=== PATIENT | male | born 2000 | race Caucasian/White ===

== ENCOUNTER 2022-02-01 09:42 | Emergency (ER) | payer SELFPAY ==
[2022-02-01 09:45] VITALS: BP 154/101; PULSE 97; RESP 24; TEMP 37.3; O2SAT 97; BMI 28.7
--- NOTE | 2022-02-01 09:45 | PC.NURSE ---
brancher via ipad provided to patient for triage
--- NOTE | 2022-02-01 09:48 | [facility].EDGENADL ---
ED Disposition Clinical Impression: Shakiness, Dizziness Heat exhaustion Qualifiers: Encounter type: initial encounter Qualified Code(s): T67.5XXA - Heat exhaustion, unspecified, initial encounter Disposition: Home, Self-Care Condition on Discharge: Good Instructions: DI for Heat Exhaustion and Heat Stroke, DI for Dizziness-Nonvertigo Additional Instructions: Off work today, rest and drink plenty of fluids. Stay out of the heat today. Antivert as needed for dizziness. You will need to follow-up with a primary care provider for your blood pressure, elevated liver enzymes, and current symptoms. Call a primary care provider to make an appointment. You are being provided with a list of physicians available for follow-up of your condition. Please call a physician on this list to arrange a follow-up appointment as soon as possible. Additional instructions regarding BLOOD PRESSURE: One or more of your blood pressure readings elevated today. Please contact your primary care physician for further evaluation or treatment of your blood pressure. Prescriptions: Meclizine HCl [Antivert 25mg tablet] 25 mg PO TIDP PRN #15 tab PRN Reason: Vertigo Transmission Status: Pending to [facility] Referrals: Provider,Referral, [Primary Care Provider] - - Critical Care Critical Care Time: No Attestation: On , the high probability of a clinically significant, sudden or life threatening deterioration of the following system(s) required my full and direct attention, intervention and personal management. The time I documented below is in addition to time spent performing reported procedures but includes the following listed in this critical care notation. Medical Decision Making - Misael Inquiry Pt receiving controlled substance: No Vital Signs: 02/01/22 09:45 02/01/22 09:59 Temperature 99.2 F Temperature Source Oral Pulse Rate 97 H Pulse Rate [Left Radial] 97 H Respiratory Rate 24 22 Blood Pressure 157/88 H Blood Pressure [Right Arm] 154/101 H Blood Pressure Mean [Right Arm] 118 02 Sat by Pulse Oximetry 97 100 Oxygen Delivery Method Room Air Room Air - Lab Data Lab Results 02/01/22 10:01: WBC 8.8, RBC 5.26, Hgb 16.5, Hct 49.7, MCV 94.4 H, MCH 31.4 H, MCHC 33.3, RDW 13.6, Plt Count 224, MPV 9.2, Neut % (Auto) 71.4, Lymph % (Auto) 14.8, [place] % (Auto) 6.9, Eos % (Auto) 4.8, Baso % (Auto) 2.1 H, Neut # (Auto) 6.3, Lymph # (Auto) 1.3, [place] # (Auto) 0.6, Eos # (Auto) 0.4, Baso # (Auto) 0.2 02/01/22 10:01: Sodium 140, Potassium 3.7, Chloride 105, Carbon Dioxide 27, Anion Gap 11.7, BUN 9, Creatinine 0.60 L, Estimated Creat Clear 250, Estimated GFR 170, Est GFR ( Amer) 206, Glucose 119 H, Calcium 9.2, Total Bilirubin < 0.1 L, AST 114 H, ALT 283 H, Alkaline Phosphatase 99, Total Protein 7.3, Albumin 4.6, Globulin 2.7, Albumin/Globulin Ratio 1.7 02/01/22 10:01: Urine Color Yellow, Urine Appearance Clear, Urine pH 6.5, Ur Specific Vivian <= 1.005, Urine Protein Negative, Urine Glucose (UA) Negative, Urine Ketones Negative, Urine Blood Negative, Urine Nitrate Negative, Urine Bilirubin Negative, Urine Urobilinogen 0.2, Ur Leukocyte Esterase Negative, Urine RBC Occasional, Urine WBC Occasional, Ur Squamous Epith Cells Occasional, Urine Bacteria Trace 02/01/22 10:01: SARS-CoV-2 (PCR) Not detected, Influenza A Untype (PCR) Not detected, Influenza Type B (PCR) Not detected 02/01/22 10:01: Urine Opiates Screen Negative, Urine Methadone Screen Negative, Ur Barbituates Screen Negative, Ur Phencyclidine Scrn Negative, Ur Amphetamines Screen Negative, U Benzodiazepines Scrn Negative, Urine Cocaine Screen Negative, U Marijuana (THC) Screen Negative 02/01/22 10:01: Plasma/Serum Alcohol 17 H 02/01/22 10:01: Total Creatine Kinase 179 H, CK-MB (CK-2) 1.5, CK-MB (CK-2) Rel Index 0.8, Troponin I < 0.01 02/01/22 10:01: Lipase 92 Result diagrams: 02/01/22 10:01 02/01/22 10:01 - Radiology Data #1 Image(s): Chest Image Re
--- NOTE | 2022-02-01 09:49 | PC.NURSE ---
YVES HOWARD at
--- NOTE | 2022-02-01 09:55 | XR_ITS ---
FINAL REPORT CLINICAL HISTORY: shakiness, hurts all over FINDINGS: TWO-VIEW CHEST The heart size is normal. The mediastinum is normal. The lungs are underinflated with scarring in the right mid lung. There is no pneumothorax. IMPRESSION: No acute cardiopulmonary process. Reviewed, Interpreted and Dictated by Jose Francisco Rosas MD Transcribed by Chika Coelho Authenticated and [facility]
--- NOTE | 2022-02-01 09:55 | ECG_ITS ---
APPROVED REPORT Exam: Resting ECG HR:98 bpm ECG Measurements Heart Rate 98 AXES WA 129 P 55 QRSd 116 QRS 24 QT 327 T 25 QTc 383 Conclusion SINUS RHYTHM POSSIBLE LATERAL MYOCARDIAL INFARCTION , OF INDETERMINATE AGE [30 ms Q WAVE IN I/aVL/V5/V6] ABNORMAL ECG UNCONFIRMED REPORT Electronically signed by : Andre Ray MD 02/01/2022 17:57:21
--- NOTE | 2022-02-01 09:58 | PC.NURSE ---
YVES HOWARD at BS with ipad for field checker. GABY Cosby at BS assisting with ipad
[2022-02-01 09:59] VITALS: BP 157/88; PULSE 97; RESP 22; O2SAT 100
--- NOTE | 2022-02-01 10:08 | PC.NURSE ---
diversional therapist used for MD to assess pt
--- NOTE | 2022-02-01 10:09 | PC.NURSE ---
pt being transported to radiology via wheelchair with general manager road production via ipad for assistance
--- NOTE | 2022-02-01 10:11 | PC.NURSE ---
pt back from radiology. pt ambulating to the restroom to provide urine sample
--- NOTE | 2022-02-01 10:12 | PC.NURSE ---
Pt using restroom at this time; no complications
--- NOTE | 2022-02-01 10:15 | PC.NURSE ---
pt back to ED room 7 from restroom via . Alea RN at to collect labs and covid swab
[2022-02-01 10:21] VITALS: BP 157/88; PULSE 92; O2SAT 99
[2022-02-01 10:24] LABS: Coronavirus 19, PCR Not Detected (NotDetected); Influenza A, PCR Not Detected (NotDetected); Influenza B, PCR Not Detected (NotDetected); Microscopic, Urine URINE MICROSCOPIC (MICROSCOPIC)
[2022-02-01 10:27] LABS: Appearance,Urine CLEAR (Clear); Bilirubin,Urine Negative (Negative); Blood, Urine Negative (Negative); Color,Urine YELLOW (Yellow); Glucose,Urine (UA) Negative (Negative); Ketones,Urine Negative (Negative); Leukocyte Esterase,Urine Negative (Negative); Nitrate,Urine Negative (Negative); PH,Urine 6.5 (5.0-8.5); Protein,Urine Negative (Negative); Specific Gravity, Urine <= 1.005 (1.005-1.030); Urobilinogen,Urine 0.2 EU/dl (0.2)
--- NOTE | 2022-02-01 10:27 | PC.NURSE ---
ua, blood and covid swab sent to the lab. blanket provided to pt. no needs voiced at this time
[2022-02-01 10:29] LABS: Basophils # 0.2 K/mm3 (0-0.2); Basophils % 2.1 % (0.1-2.0); Eosinophils # 0.4 K/mm3 (0.0-0.4); Eosinophils % 4.8 % (0.1-12.0); Hematocrit 49.7 % (42.0-52.0); Hemoglobin 16.5 g/dL (14.1-18.0); Lymphocytes # 1.3 K/mm3 (0.7-4.5); Lymphocytes % 14.8 % (10-50); Mean Corpuscular HGB Conc 33.3 g/dL (31.8-35.4); Mean Corpuscular Hemoglobin 31.4 pg (27.0-31.2); Mean Corpuscular Volume 94.4 fl (80-94); Mean Platelet Volume 9.2 fl (7.4-10.4); Monocytes # 0.6 K/mm3 (0.1-1.0); Monocytes % 6.9 % (1.7-9.3); Neutrophils # 6.3 K/mm3 (1.8-7.8); Neutrophils % 71.4 % (37.0-80.0); Platelet Count 224 K/mm3 (142-424); Red Blood Count 5.26 M/mm3 (4.60-6.20); Red Cell Distribution Width 13.6 % (11.5-17.5); White Blood Count 8.8 K/mm3 (4.8-10.8)
[2022-02-01 10:38] VITALS: BP 140/94; PULSE 95; O2SAT 99
[2022-02-01 10:40] LABS: Amphetamine/Metha Screen,Urine Negative ng/ml (<1000)
[2022-02-01 10:41] LABS: Barbiturates Screen,Urine Negative ng/ml (<200)
[2022-02-01 10:42] LABS: Benzodiazepines Screen,Urine Negative ng/ml (<200); Cannabinoid Screen,Urine Negative ng/ml (<50)
[2022-02-01 10:43] LABS: Cocaine Screen,Urine Negative ng/ml (<300)
[2022-02-01 10:44] LABS: Methadone Screen,Urine Negative ng/ml (<300); Opiate Screen,Urine Negative ng/ml (<300)
[2022-02-01 10:45] LABS: Phencyclidine Screen,Urine Negative ng/ml (<25)
[2022-02-01 10:48] LABS: Bacteria,Urine Trace /lpf; RBC,Urine Occasional #/hpf (0-3); Squamous Epithelial Cell,Urine Occasional #/hpf (0-5); WBC,Urine Occasional #/hpf (0-3)
[2022-02-01 10:53] LABS: Creatine Kinase 179 U/L (55-170)
[2022-02-01 10:54] LABS: Alanine Aminotransferase 283 U/L (12-78); Albumin Level 4.6 g/dl (3.5-5.0); Albumin/Globulin Ratio 1.7 (1.1-1.8); Alkaline Phosphatase 99 U/L (38-126); Anion Gap 11.7 mEq/L (5-15); Aspartate Amino Transferase 114 U/L (17-59); Blood Urea Nitrogen 9 mg/dl (9-20); Calcium 9.2 mg/dl (8.4-10.2); Carbon Dioxide 27 mmol/L (22.0-30.0); Chloride 105 mmol/L (98-107); Creatinine Clearance Estimated 250 mL/min (50-200); Estimated Glomerular Filt Rate 170 ml/min (>60); Ethyl Alcohol 17 mg/dl (0-10); GFR (African American) 206 ML/MIN (>60); Globulin 2.7 g/dL (1.3-3.2); Glucose 119 mg/dl (74-100); Lipase 92 U/L (23-300); Potassium 3.7 mmoL/L (3.5-5.1); Sodium 140 mmol/L (136-145); Total Protein,Serum 7.3 g/dl (6.3-8.2)
[2022-02-01 10:55] LABS: Bilirubin,Total < 0.1 mg/dl (0.2-1.3)
--- NOTE | 2022-02-01 11:00 | PC.NURSE ---
continuing to rest, no needs voiced
[2022-02-01 11:05] LABS: CKMB Relative Index 0.8 U/L (0-4.0); Creatine Kinase MB 1.5 ng/ml (0.0-2.03); Troponin I < 0.01 ng/ml (0.00-0.034)
[2022-02-01 11:08] VITALS: BP 151/93; PULSE 90; RESP 20; O2SAT 98
--- NOTE | 2022-02-01 11:21 | PC.NURSE ---
at the bedside with ipad telephone supervisor to go over d/c instructions with
--- NOTE | 2022-02-01 11:34 | PC.NURSE ---
IV d/c. d/c instructions given to pt. pt is awaiting transportation
[2022-02-01 11:35] VITALS: BP 151/83; PULSE 94; RESP 20; TEMP 37.2; O2SAT 97
== END 2022-02-01 11:46 | disposition home or self-care (01) ==
PROVIDERS: Emergency Provider Emergency Medicine
DX: T67.5XXA Heat exhaustion, unspecified, initial encounter (principal)
CPT/HCPCS: 71046; 80053; 80305; 81001; 82550; 82553; 83690; 84484; 85025; 93005; 99283; 99285; C9803; U0003; U0005